=== PATIENT | male | born 1990 | race Caucasian/White ===

== ENCOUNTER → 2019-09-11 | Outpatient (CLI) | payer BC ==
[~2019-09-11] MED LIST: NO HOME MEDICATIONS
== END ==
LOC: ZCOL.LAB 20:20
DX: U07.1 COVID-19 (principal)

== ENCOUNTER 2019-09-22 22:14 | Inpatient (IN) | payer BC ==
[~2019-09-22] VITALS: Ht 177.8 cm; Wt 90.2 kg
[2019-09-22 23:33] LABS: BASO # 0.1 (0.0-0.2); BASO % 0.5 % (0.0-2.0); EOS % 0.3 % (0-4.0); GRAN # 11.1 (1.4-6.5); GRAN % 81.6 % (42.2-75.2); HEMATOCRIT 49.2 % (42.0-52.0); HEMOGLOBIN 16.7 g/dl (13.5-18.0); LYMPH # 1.2 (1.2-3.4); MEAN CELL VOLUME 99 fl (80.0-100.0); MEAN CORPUSCULAR HEMOGLOBIN 34 pg (27.0-31.0); MEAN CORPUSCULAR HGB CONC 34 g/dl (33.0-37.0); MEAN PLATELET VOLUME 10.2 fl (7.4-10.4); MONO # 1.1 (0.1-0.6); MONO % 8.3 % (1.7-9.3); PLATELET COUNT 278 K/mm3 (130-400); RED BLOOD COUNT 4.97 M/mm3 (4.20-5.60); REDCELL DISTRIBUTION WIDTH-CV 12.5 % (11.5-14.5)
[2019-09-22 23:42] LABS: ALBUMIN 4.8 gm/dL (3.5-5.0); BILIRUBIN,TOTAL 0.8 mg/dL (0.0-1.0); CALCIUM 9.6 mg/dL (8.4-10.2); CREATININE, serum 0.65 (0.66-1.25); POTASSIUM 3.5 mmol/L (3.4-5.0); TOTAL PROTEIN 8.6 gm/dL (6.4-8.2)
[2019-09-23] VITALS (584 sets, daily range): BP systolic 123–153; BP diastolic 90–105; PULSE 71–147; TEMP 98.2–99; O2SAT 89–100
--- NOTE | 2019-09-23 03:23 | NUR ---
Received report from LAN Araiza.
--- NOTE | 2019-09-23 03:47 | NUR ---
Patient arrives to [facility] room 18 via ED wheelchair. Patient able to ambulate to [facility] bed. Reports 9/10 "strong aching," abdominal pain that radiates to the lower back. Initial vitals within normal limits. Following ambulation, patient vomits 300mL of clear/yellow emesis. PRN Zofran and Dilaudid administered according to orders to a peripheral RAC. At this time, patient reports very little relief, rating pain as a 7/10. Bed placed in the lowest position and the patient is provided with the call light. Will continue to monitor.
[2019-09-23 07:08] LABS: BASO % 0.3 % (0.0-2.0); GRAN # 10.2 (1.4-6.5); GRAN % 87.6 % (42.2-75.2); HEMATOCRIT 47.6 % (42.0-52.0); HEMOGLOBIN 15.9 g/dl (13.5-18.0); LYMPH # 0.5 (1.2-3.4); LYMPH % 4.4 % (20.0-51.0); MEAN CELL VOLUME 99 fl (80.0-100.0); MEAN CORPUSCULAR HEMOGLOBIN 33 pg (27.0-31.0); MEAN CORPUSCULAR HGB CONC 33 g/dl (33.0-37.0); MEAN PLATELET VOLUME 10.6 fl (7.4-10.4); MONO # 0.9 (0.1-0.6); MONO % 7.4 % (1.7-9.3); PLATELET COUNT 228 K/mm3 (130-400); REDCELL DISTRIBUTION WIDTH-CV 12.4 % (11.5-14.5)
[2019-09-23 07:21] LABS: ALBUMIN 4.1 gm/dL (3.5-5.0); CALCIUM 8.8 mg/dL (8.4-10.2); CREATININE, serum 0.45 (0.66-1.25); MAGNESIUM 1.2 mg/dL (1.6-2.3); PHOSPHOROUS 3.7 mg/dL (2.5-4.5); POTASSIUM 4.1 mmol/L (3.4-5.0); TOTAL PROTEIN 7.7 gm/dL (6.4-8.2)
--- NOTE | 2019-09-23 09:47 | NUR ---
PT STILL HAVING PAIN AT A 9. PRN DILADUD Q2HR AND ONLY LASTING 1 HOUR. CALLED AND NOTIFIED OF ABOVE AND THAT PT HAS A MAGNESIUM LEVEL OF 1.2. ORDERS RECEIVED TO INCREASE DILAUDID AND GIVE MAGNESIUM 4MG IV.
--- NOTE | 2019-09-23 14:15 | NUR ---
PT SHOWING ST IN THE 130-140'S. PAIN MEDS GIVEN PREVIOUSLY D/T ABD PAIN. HR STILL IN THE 140'S. NOTIFIED AND ORDERS RECEIVED TO STARTED ALCOHOL DETOX PROTOCOL.
[2019-09-23 16:44] LABS: INR 1.2 (0.8-3.0); PROTHROMBIN TIME 13.7 SECONDS (9.7-12.8)
[2019-09-23 16:47] LABS: PARTIAL THROMBOPLASTIN TIME 28.4 SECONDS (26.0-37.0)
--- NOTE | 2019-09-23 17:07 | NUR ---
NOITIFIED OF POSITIVE COVID RESULT.
--- NOTE | 2019-09-23 17:44 | NUR ---
PT STILL TACHYCARDIC IN THE 140'S-150'S. NOTIFIED. ORDER RECEIVED FOR INCREASED DIALUADID DOSE. WILL CONTNIUE TO MONITOR.
--- NOTE | 2019-09-23 18:36 | NUR ---
ON FLOOR AND UPDATED REGARDING PT'S HR IN THE 140'S-150'S EVEN AFTER GIVEN ATIVAN, DIAULADID, AND ZOFRAN. ORDER RECEIVED TO TRANSFER TO ICU FOR CLOSELY.
--- NOTE | 2019-09-23 20:00 | NUR ---
PATIENT SITS QUIET IN ROOM, SEEMS CALM, WHEN ASSESSED STAFF CAN FEEL INTERNAL TREMORS, WITH RAPID HEART RATE, ADMINISTERED ATIVAN 2 MG, PATIENT REMAINS CALM
[2019-09-24] VITALS (704 sets, daily range): BP systolic 112–131; BP diastolic 85–95; PULSE 84–130; TEMP 98.2–99.1; O2SAT 66–100
[2019-09-24 00:50] LABS: COLLECTION METHOD CLEAN CATCH
--- NOTE | 2019-09-24 00:54 | NUR ---
PATIENT STOOD BY BED AND URINATED. PATIENT'S PULSE INCREASED TO 150, PATIENT REMAIN STEADY WITH 1 STAFF MEMBER ASSISTANCE. THEN BACK TO BED
[2019-09-24 00:56] LABS: MUCOUS Present /lpf; PH 5 (5-8); SQUAMOUS EPITHELIAL 0-2 /hpf; URINE APPEARANCE Clear; URINE BACTERIA None Seen /hpf; URINE BILIRUBIN Negative (NEGATIVE); URINE BLOOD Negative (NEGATIVE); URINE COLOR Amber; URINE GLUCOSE Negative (NEGATIVE); URINE KETONE Trace (NEGATIVE); URINE LEUKOCYTE ESTERASE Negative (NEGATIVE); URINE NITRATE Negative (NEGATIVE); URINE PROTEIN(semi-quant) 1+ (NEGATIVE); URINE RBC 0-2 /hpf; URINE UROBILINOGEN >=4.0 mg/dL (NEGATIVE); URINE WBC None Seen /hpf
[2019-09-24 01:16] LABS: TRICYCLIC ANTIDEPRESS URINE NEGATIVE
--- NOTE | 2019-09-24 04:19 | NUR ---
PATIENT APPEARS TO BE SLEEPY, EASILY AWAKENS, STATES WHENEVER HE WAKES UP HE FEELS HE IS IN A DREAM, HOWEVER ALL THAT CLEARS THE LONGER HE STAYS AWAKE, PATIENT DISCOUNTS ABDOMINAL PAIN BY ANSWERING " THE PAIN IS NO WAY NEAR WHAT IT USE TO BE, I CAN HANDLE IT"
[2019-09-24 05:18] LABS: BASO % 0.3 % (0.0-2.0); EOS # 0.1 (0.0-0.7); EOS % 0.8 % (0-4.0); GRAN # 12.9 (1.4-6.5); GRAN % 87.6 % (42.2-75.2); HEMATOCRIT 47.9 % (42.0-52.0); HEMOGLOBIN 16.3 g/dl (13.5-18.0); LYMPH # 0.4 (1.2-3.4); MEAN CELL VOLUME 99 fl (80.0-100.0); MEAN CORPUSCULAR HEMOGLOBIN 34 pg (27.0-31.0); MEAN CORPUSCULAR HGB CONC 34 g/dl (33.0-37.0); MONO # 1.1 (0.1-0.6); MONO % 7.6 % (1.7-9.3); PLATELET COUNT 181 K/mm3 (130-400); RED BLOOD COUNT 4.83 M/mm3 (4.20-5.60); REDCELL DISTRIBUTION WIDTH-CV 12.6 % (11.5-14.5)
[2019-09-24 05:34] LABS: ALBUMIN 3.4 gm/dL (3.5-5.0); CALCIUM 8.4 mg/dL (8.4-10.2); CREATININE, serum 0.54 (0.66-1.25); POTASSIUM 4.1 mmol/L (3.4-5.0); TOTAL PROTEIN 6.5 gm/dL (6.4-8.2)
[2019-09-24 06:08] LABS: C-REACTIVE PROTEIN 39.4 mg/dL (0.0-0.9)
--- NOTE | 2019-09-24 12:55 | NUR ---
plan: To return home. patient currently lives with a roommate. patient indicated that his EMR and care support are his sister Raquel [phone] (number lsited in patient notes is [phone]) Patient resides in [facility]. Assess: SW contacted patient via phone to complete initial assessment. Patient indicated that he did not currently utilize any DMR, and that he did not have a currently PCP. He was interested in obtaining information for a PCP is possible, he does not have any upcoming appointments with any provider. Patient reported that he gets his medications from [facility] with no concerns. Patient is COVID positive. No additional concerns noted. Action: SW will provide information on current providers in the area. Patient was educated about community resources.
[2019-09-25] VITALS (560 sets, daily range): BP systolic 90–144; BP diastolic 55–103; PULSE 65–113; TEMP 98.2–98.6; O2SAT 63–99
[2019-09-25 05:46] LABS: BASO % 0.2 % (0.0-2.0); EOS % 0.1 % (0-4.0); GRAN # 11.1 (1.4-6.5); GRAN % 84.1 % (42.2-75.2); HEMATOCRIT 42.2 % (42.0-52.0); HEMOGLOBIN 14.3 g/dl (13.5-18.0); LYMPH # 0.9 (1.2-3.4); LYMPH % 6.9 % (20.0-51.0); MEAN CELL VOLUME 100 fl (80.0-100.0); MEAN CORPUSCULAR HEMOGLOBIN 34 pg (27.0-31.0); MEAN CORPUSCULAR HGB CONC 34 g/dl (33.0-37.0); MEAN PLATELET VOLUME 10.9 fl (7.4-10.4); MONO # 1.1 (0.1-0.6); MONO % 8.1 % (1.7-9.3); PLATELET COUNT 178 K/mm3 (130-400); RED BLOOD COUNT 4.24 M/mm3 (4.20-5.60); REDCELL DISTRIBUTION WIDTH-CV 12.4 % (11.5-14.5)
[2019-09-25 05:55] LABS: CALCIUM 8.6 mg/dL (8.4-10.2); CREATININE, serum 0.54 (0.66-1.25)
--- NOTE | 2019-09-25 08:11 | NUR ---
Dr. Robb at patient bedside. Ordered to turn precedex gtt off when current bag runs out. Will start on some zosyn today for a peaked procalcitonin. Can be made IMCU status.
--- NOTE | 2019-09-25 10:12 | NUR ---
at patient bedside. D/C LR and do NS only for IVF with a decreased rate of 100ml/hr. advanced diet to bland. can make medical status and go upstairs if room available.
--- NOTE | 2019-09-25 20:00 | NUR ---
Patient resting in bed watching TV. No complaints of SOA. Patient is off of O2. He is A+Ox4. complaints of some mild 2/10 back pain. Does not request meds at this time. Assessment complete with no significant findings. Patient states he is feeling a lot better, though a little weak from being in the bed for so long. Patient has no further needs at this time. Will continue to monitor. Call light within reach.
[2019-09-26] VITALS (463 sets, daily range): BP systolic 131–143; BP diastolic 78–104; PULSE 54–71; TEMP 97.6–98.6; O2SAT 65–100
--- NOTE | 2019-09-26 | NUR ---
Patient is awake watching TV. Has complaints of now 4/10 pain and is requesting some tylenol. to be provided. Vitals obtained. Patient is not having any detox symptoms with the exception of elevated blood pressure, but he is not scoring high enough to get medication. Patient has no further needs. Will continue to monitor. Call light within reach.
[2019-09-26 06:22] LABS: CALCIUM 8.4 mg/dL (8.4-10.2); CREATININE, serum 0.49 (0.66-1.25); POTASSIUM 3.6 mmol/L (3.4-5.0)
[2019-09-26 06:26] LABS: BASO % 0.2 % (0.0-2.0); EOS % 0.1 % (0-4.0); GRAN # 10.4 (1.4-6.5); GRAN % 81.7 % (42.2-75.2); HEMATOCRIT 40.2 % (42.0-52.0); HEMOGLOBIN 13.2 g/dl (13.5-18.0); LYMPH # 1.2 (1.2-3.4); LYMPH % 9.2 % (20.0-51.0); MEAN CELL VOLUME 103 fl (80.0-100.0); MEAN CORPUSCULAR HEMOGLOBIN 34 pg (27.0-31.0); MEAN CORPUSCULAR HGB CONC 33 g/dl (33.0-37.0); MEAN PLATELET VOLUME 11.4 fl (7.4-10.4); MONO # 1.1 (0.1-0.6); MONO % 8.3 % (1.7-9.3); PLATELET COUNT 218 K/mm3 (130-400); RED BLOOD COUNT 3.92 M/mm3 (4.20-5.60); REDCELL DISTRIBUTION WIDTH-CV 12.9 % (11.5-14.5)
--- NOTE | 2019-09-26 09:30 | NUR ---
at bedside, Will d/c fluids, and detox protocol. Transfer to medical and plan to go home tomorrow.
--- NOTE | 2019-09-26 14:05 | NUR ---
Gave report to Barbara. Will bring patient up to medical room 305.
--- NOTE | 2019-09-26 19:25 | NUR ---
Patient is alert and oriented. denies any pain, Afibile on this shift. transferred from ICU to medical today. Administered antibiotic as scheduled. No sign of respiratory failure. independent in his room.
--- NOTE | 2019-09-27 01:56 | NUR ---
Received report from LAN Jimenez. A/Ox4. Independent in room. Denies any pain or discomfort at this time. Meds administered. INT to RFA intact, flushed w/o complications, dressing CDI. Pt had a shower this evening. States no needs or concerns at this time. Call light within reach.
[2019-09-27 03:27] VITALS: BP 130/82; PULSE 56; TEMP 98.9
--- NOTE | 2019-09-27 06:30 | NUR ---
Pt uneventful throughout the night. Pt requested PRN pain meds for back pain, rate 6/10, PRN tramadol adminsitered as requested. Scheduled meds given. Needs met. Call light within reach.
--- NOTE | 2019-09-27 06:49 | NUR ---
Report given to LAN Soler.
[2019-09-27 07:51] VITALS: BP 130/82; BP 134/76; PULSE 54; TEMP 98.5
--- NOTE | 2019-09-27 08:32 | NUR ---
PT IS LAYING IN BED AT THIS TIME. BREAKFAST HAS ARRIVED, AND PT STATES HE DOESN'T HAVE A HUGE APPETITE, BUT IS ABLE TO EAT WITHOUT NAUSEA. ASSESSMENT COMPLETE. PT IS A&O X4 AND INDEPENDENT. ZOSYN RUNNING IN IV AT THIS TIME. NO FURTHER CONCERNS. CALL LIGHT WITHIN REACH.
[2019-09-27] MEDS ORDERED: DECADRON6 MG PO (12:40)
[2019-09-27] MEDS ORDERED: OMNICEF 300MG300 MG PO (12:41)
[2019-09-27] MEDS ORDERED: DUO-KAPS1 CAP PO (12:41)
[2019-09-27] MEDS ORDERED: THIAMINE 1100 MG/TAB PO (12:41)
[2019-09-27] MEDS ORDERED: FOLIC ACID 11 MG/TA1 PO (12:41)
--- NOTE | 2019-09-27 12:58 | NUR ---
Fishing Game Warden contacted the patient via cell phone to revisit the discharge plan. The patient plans to return home. SARAH discussed setting up primary care. The patient would like . SARAH contacted Keiko with Dr. Daniel's office. She states Dr. Daniel is taking new patients but does not have appointments until mid-October. SARAH faxed information to his office. Keiko will contact SARAH with the appointment time. Will continue to monitor.
--- NOTE | 2019-09-27 14:16 | NUR ---
PT IS DISCHARGING HOME TODAY. HE WILL BE REQUIRED TO QUARANTINE AT HOME FOR ANOTHER 7 DAYS POST DISCHARGE. PT HAS BEEN TOLD THIS.
== END 2019-09-27 14:27 | disposition home or self-care (01) | DRG 438 ==
LOC: COL.ER 22:14 → ICU 09-23 02:46 → IMCU 09-23 02:46 → ICU 09-23 20:11 → MEDICAL 09-26 15:41
PROVIDERS: Hospitalist; Internal Medicine; Physician Assistant
DX: K85.20 Alcohol induced acute pancreatitis without necrosis or infection (principal); U07.1 COVID-19; E87.2 Acidosis; F17.210 Nicotine dependence, cigarettes, uncomplicated; F10.20 Alcohol dependence, uncomplicated; R00.0 Tachycardia, unspecified
CPT/HCPCS: OP; 99223-AI; 99232-AI; 99233-AI; 99239; A9284; J1170; J1644; J1650; J2060; J2405; J2543; J3010; J3475; J7030; J7120; J8540; Q9967